=== PATIENT | male | born 1990 | race Caucasian/White ===

== ENCOUNTER 2017-11-11 02:39 | Emergency (ER) | payer BC, MEDICAID ==
[~2017-11-11] VITALS: Ht 170.2 cm; Wt 72.6 kg
[~2017-11-11 02:39] MED LIST: DIVA500T4 PO
[2017-11-11 02:48] VITALS: BP_SYST 151
[2017-11-11 03:30] VITALS: BP_SYST 144
== END 2017-11-11 03:30 ==
LOC: SED 02:39
DX: S20.211A Contusion of right front wall of thorax, initial encounter (principal); S00.81XA Abrasion of other part of head, initial encounter; Z79.899 Other long term (current) drug therapy; Y04.0XXA Assault by unarmed brawl or fight, initial encounter; Y93.89 Activity, other specified; Y92.89 Other specified places as the place of occurrence of the external cause; Y99.8 Other external cause status
CPT/HCPCS: 70150-TC; 71110; 99284